=== PATIENT | female | born 1985 | race Caucasian/White ===

== ENCOUNTER 2018-02-01 19:20 | Emergency (ER) | payer MEDICAID ==
[~2018-02-01] VITALS: Ht 172.7 cm; Wt 90.9 kg
[~2018-02-01 19:20] MED LIST: CLIN300C85 PO
[2018-02-01] MEDS ORDERED: cyclobenzaprine 10mg tablet PO ONE (20:25)
[2018-02-01] MEDS ORDERED: NAPR-56 PO (20:25)
[2018-02-01] MEDS ORDERED: ketorolac trometh inj. 60 MG/2 ML VIAL IM ONE (20:25)
[2018-02-01] MEDS ORDERED: HYDROcodone/acetaminophen 10/325mg tab PO ONE (20:25)
[2018-02-01] MEDS ORDERED: CYCL-1 PO (20:25)
[2018-02-01 20:49] VITALS: BP 132/109
== END 2018-02-01 20:50 | disposition home or self-care (01) ==
LOC: ER 19:21
DX: M54.5 Low back pain (principal); F17.200 Nicotine dependence, unspecified, uncomplicated; Z90.49 Acquired absence of other specified parts of digestive tract
CPT/HCPCS: 96372; 99283; J1885

== ENCOUNTER 2018-04-21 20:09 | Emergency (ER) | payer MEDICAID ==
[~2018-04-21] VITALS: Ht 172.7 cm; Wt 90.9 kg
[~2018-04-21 20:09] MED LIST changes: +CYCL-1 PO
[2018-04-21] MEDS ORDERED: pseudoephedrine 30mg tablet PO ONE (20:45)
[2018-04-21] MEDS ORDERED: ibuprofen tablet 400 MG TABLET PO ONE (20:45)
[2018-04-21 20:53] VITALS: BP 186/102
== END 2018-04-21 20:57 | disposition home or self-care (01) ==
LOC: ER 20:10
DX: J06.9 Acute upper respiratory infection, unspecified (principal); J31.0 Chronic rhinitis; F17.200 Nicotine dependence, unspecified, uncomplicated; F15.10 Other stimulant abuse, uncomplicated; Z90.89 Acquired absence of other organs
CPT/HCPCS: 99283